=== PATIENT | female | born 1935 | race Caucasian/White ===

== ENCOUNTER → 2017-06-13 | Outpatient (CLI) | payer OTHER ==
[2016-05-13 11:42] VITALS: BP 165/70
[~2017-06-13] MED LIST: CIPR500T PO; EZET10TA18 PO; LATA2.5D3 EACHEYE; METO1TAB6 PO; METR500T PO; TIMO5DRO5 EACHEYE
--- NOTE | 2017-06-13 17:50 | CARD ---
APPROVED REPORT EXAM: Two-dimensional and M-mode echocardiogram with Doppler and color Doppler. Other Information Quality : Good INDICATION Mitral Valve Disease Mitral Regurgitation 2D DIMENSIONS RVDd2.4 (2.9-3.5cm)Left Atrium(2D)4.4 (1.6-4.0cm) IVSd1.2 (0.7-1.1cm)Aortic Root(2D)2.5 (2.0-3.7cm) LVDd3.7 (3.9-5.9cm)LVOT Diameter2.0 (1.8-2.4cm) PWd1.1 (0.7-1.1cm)LVDs2.2 (2.5-4.0cm) FS (%) 30.0 %SV39.7 ml LVEF(%)60.0 (>50%) Aortic Valve AoV Peak Wali.121.0cm/sAoV VTI23.6cm AO Peak GR.5.9mmHgLVOT Peak Wali.88.6cm/s LVOT VTI 20.21cmAO Mean GR.3mmHg ESSENCE (VMAX)2.57fo3BAU (VTI)2.63cm2 AI P 1/2 Vrrm914mh Mitral Valve MV E Azfgqbkt395.2cm/sMV DECEL [id number] MV A Dtccypmx02.4cm/sMV QRM52rt E/A Ratio1.1MVA (PHT)4.99cm2 TDI E/Lateral E'28.5E/Medial E'30.6 Tricuspid Valve TR P. Chaqtdfh417wq/sRAP RTGJLPCN9wrYp TR Peak Gr.50tdYxWBGY84reRt Pulmonary Vein S1 Mawfysrn75.0cm/sD2 Pewtxuhi39.9cm/s LEFT VENTRICLE The left ventricle is normal size. There is mild concentric left ventricular hypertrophy. The left ve ntricular systolic function is normal and the ejection fraction is within normal range. The Ejection Fraction is 60%. There is normal LV segmental wall motion. Transmitral Doppler flow pattern is Grade I-abnormal relaxation pattern. RIGHT VENTRICLE The right ventricle is normal size. The right ventricular systolic function is normal. ATRIA The left atrium is mildly dilated. The right atrium size is normal. The interatrial septum is intact with no evidence for an atrial septal defect or patent foramen ovale as noted on 2-D or Doppler imagi ng. AORTIC VALVE The aortic valve is calcified but opens well. Doppler and Color Flow revealed moderate aortic regurgi tation. There is no significant aortic valvular stenosis. MITRAL VALVE The mitral valve is normal in structure There is no evidence of mitral valve prolapse. There is no mi tral valve stenosis. Doppler and Color-flow revealed mild to moderate mitral regurgitation. TRICUSPID VALVE The tricuspid valve is normal in structure Doppler and Color Flow revealed trace tricuspid regurgitat ion. There is mild pulmonary hypertension. The PA pressure was estimated at 30 mmHg. There is no tric uspid valve stenosis. PULMONIC VALVE The pulmonary valve is normal in structure Doppler and Color Flow revealed trace pulmonic valvular re gurgitation. There is no pulmonic valvular stenosis. GREAT VESSELS The aortic root is normal in size. The ascending aorta is normal in size. The IVC is normal in size a nd collapses >50% with inspiration. PERICARDIAL EFFUSION There is a very small amount of pericardial effusion. Critical Notification Critical Value: No <Conclusion> The left ventricular systolic function is normal and the ejection fraction is within normal range. The Ejection Fraction is 60%. There is mild concentric left ventricular hypertrophy. Transmitral Doppler flow pattern is Grade I-abnormal relaxation pattern. The left atrium is mildly dilated. The right atrium size is normal. The left atrium is mildly dilated. The right atrium size is normal. Doppler and Color Flow revealed moderate aortic regurgitation. The aortic valve is calcified but opens well. Doppler and Color-flow revealed mild to moderate mitral regurgitation. Doppler and Color Flow revealed trace tricuspid regurgitation. There is mild pulmonary hypertension. The PA pressure was estimated at 30 mmHg. Doppler and Color Flow revealed trace pulmonic valvular regurgitation. The ascending aorta is normal in size. The aortic root is normal in size. There is a very small amount of pericardial effusion.
== END | disposition home or self-care (01) ==
LOC: ECHO 14:18
PROVIDERS: ATTEND Internal Medicine Cardiovascular Disease
DX: I08.3 Combined rheumatic disorders of mitral, aortic and tricuspid valves (principal); I27.20 Pulmonary hypertension, unspecified; I31.3 Pericardial effusion (noninflammatory)
CPT/HCPCS: 93306

== ENCOUNTER 2019-06-28 12:51 | Inpatient (IN) | payer OTHER ==
[~2019-06-28] VITALS: Ht 167.6 cm; Wt 105.7 kg
[~2019-06-28 12:51] MED LIST changes: -EZET10TA18 PO; +EZET10TA20 PO
--- NOTE | 2019-06-28 13:26 | PHYS DOC ---
Past Medical History Past Medical History: Diverticulitis, High Cholesterol, Hypertension, [place] Past Surgical History: Appendectomy, Other Additional Past Surgical Histo: CARDIAC STENT, PROLAPSED UTERUS, OVARIAN CYST Alcohol Use: Occasionally Drug Use: None Adult General Chief Complaint Chief Complaint: RAPID HEART RATE HPI HPI Patient is a 83 year old female that is with palpitations. The patient's been wearing a Holter monitor for the past several weeks she been having these episodes off and on. The patient was seen by Dr. Jeffery today at the studio technician video operator's office. She was sent to the ER due to a high heart rate. On arrival to the emergency department her heart rate is 151. Denies shortness of breath, but reports palpitations. The patient states that she does not have a history of atrial fibrillation. Review of Systems Review of Systems Constitutional: Denies fever or chills [] Eyes: Denies change in visual acuity, redness, or eye pain [] HENT: Denies nasal congestion or sore throat [] Respiratory: Denies cough or shortness of breath [] Cardiovascular: No additional information not addressed in HPI [] GI: Denies abdominal pain, nausea, vomiting, bloody stools or diarrhea [] : Denies dysuria or hematuria [] Musculoskeletal: Denies back pain or joint pain [] Integument: Denies rash or skin lesions [] Neurologic: Denies headache, focal weakness or sensory changes [] Endocrine: Denies polyuria or polydipsia [] Complete systems were reviewed and found to be within normal limits, except as documented in this note. Current Medications Current Medications Current Medications Medications (Trade) Dose Ordered Sig/[facility] Start Time Stop Time Status Last Admin Dose Admin Diltiazem HCl (Cardizem Iv Push) 15 mg 1X ONCE 06/28/19 13:30 06/28/19 13:32 DC 06/28/19 13:52 15 MG Diltiazem HCl 125 mg/Dextrose 125 ml @ 10 mls/hr 1X ONCE 06/28/19 13:59 06/29/19 01:59 Cancel Sodium Chloride 1,000 ml @ 1,000 mls/hr 1X ONCE 06/28/19 13:30 06/28/19 14:29 06/28/19 13:48 1,000 MLS/HR Allergies Allergies Allergies Coded Allergies Type Severity Reaction Last Updated Verified No Known Drug Allergies 05/11/16 No Physical Exam Physical Exam Constitutional: Well developed, well nourished, no acute distress, non-toxic appearance. [] HENT: Normocephalic, atraumatic, bilateral external ears normal, oropharynx moist, no oral exudates, nose normal. [] Eyes: PERRLA, EOMI, conjunctiva normal, no discharge. [] Neck: Normal range of motion, no tenderness, supple, no stridor. [] Cardiovascular:Heart rate irregular rhythm, no murmur [] Lungs & Thorax: Bilateral breath sounds clear to auscultation [] Abdomen: Bowel sounds normal, soft, no tenderness, no masses, no pulsatile masses. [] Skin: Warm, dry, no erythema, no rash. [] Back: No tenderness, no CVA tenderness. [] Extremities: No tenderness, no cyanosis, no clubbing, ROM intact, no edema. [] Neurologic: Alert and oriented X 3, normal motor function, normal sensory function, no focal deficits noted. [] Psychologic: Affect normal, judgement normal, mood normal. [] Current Patient Data Vital Signs Vital Signs Date Time Temp Pulse Resp B/P (MAP) Pulse Ox O2 Delivery O2 Flow Rate FiO2 06/28/19 13:52 152 157/85 06/28/19 13:18 97.1 20 Room Air 97.1 Lab Values Laboratory Tests Test 06/28/19 13:25 White Blood Count 7.8 x10^3/uL (4.0-11.0) Red Blood Count 4.63 x10^6/uL (3.50-5.40) Hemoglobin 14.7 g/dL (12.0-15.5) Hematocrit 42.1 % (36.0-47.0) Mean Corpuscular Volume 91 fL (79-100) Mean Corpuscular Hemoglobin 32 pg (25-35) Mean Corpuscular Hemoglobin Concent 35 g/dL (31-37) Red Cell Distribution Width 13.1 % (11.5-14.5) Platelet Count 227 x10^3/uL (140-400) Neutrophils (%) (Auto) 69 % (31-73) Lymphocytes (%) (Auto) 19 % (24-48) L Monocytes (%) (Auto) 10 % (0-9) H Eosinophils (%) (Auto) 3 % (0-3) Basophils (%) (Auto) 1 % (0-3) Neutrophils # (Auto) 5.3 x10^3/uL (1.8-7.7) Lymphocytes # (Auto) 1.5 x10^3/uL (1.0-4.8) Monocytes # (Auto) 0.7 x10^3/uL (0.0-1.1) Eosinophils # (Auto) 0.2 x10^3/uL (0.0-0.7) Basophils # (Auto) 0.0 x10^3/uL (0.0-0.2) Prothrombin Time 24.1 SEC (11.7-14.0) H Prothrombin Time INR 2.2 (0.8-1.1) H Activated Partial Thromboplast Time 54 SEC (24-38) H Sodium Level 140 mmol/L (136-145) Potassium Level 4.4 mmol/L (3.5-5.1) Chloride Level 105 mmol/L (98-107) Carbon Dioxide Level 25 mmol/L (21-32) Anion Gap 10 (6-14) Blood Urea Nitrogen 35 mg/dL (7-20) H Creatinine 1.3 mg/dL (0.6-1.0) H Estimated GFR (Cockcroft-Gault) 39.2 BUN/Creatinine Ratio 27 (6-20) H Glucose Level 208 mg/dL (70-99) H Calcium Level 9.3 mg/dL (8.5-10.1) Magnesium Level 1.6 mg/dL (1.8-2.4) L Total Bilirubin 0.6 mg/dL (0.2-1.0) Aspartate Amino Transferase (AST) 16 U/L (15-37) Alanine Aminotransferase (ALT) 24 U/L (14-59) Alkaline Phosphatase 80 U/L (46-116) Creatine Kinase 44 U/L (26-192) Creatine Kinase MB (Mass) 1.4 ng/mL (0.0-3.6) Creatine Kinase MB Relative Index % (0-4) Troponin I Quantitative < 0.017 ng/mL (0.000-0.055) Total Protein 7.1 g/dL (6.4-8.2) Albumin 4.0 g/dL (3.4-5.0) Albumin/Globulin Ratio 1.3 (1.0-1.7) Laboratory Tests 06/28/19 13:25 Laboratory Tests 06/28/19 13:25 EKG EKG EKG interpreted by Dr. Prado Heart rate of 151 with afib with rvr.[] Radiology/Procedures Radiology/Procedures [][facility] [address] [place] [address] IMAGING REPORT Signed PATIENT: BENI SKY CACCOUNT: [id number] : 1935 LOCATION: ER AGE: 83 SEX: F EXAM STATUS: REG ER ORD. PHYSICIAN: VIKY POWELL APRN REASON: palpitations PROCEDURE: CHEST PA & LATERAL EXAM: Chest, 2 views. HISTORY: Palpitations. COMPARISON: None. FINDINGS: 2 views of the chest are obtained. There is no infiltrate, pleural effusion or pneumothorax. The heart is normal in size. There is hyperinflation due to inspiratory effort or emphysema. There is a severe wedge compression fracture at the thoracolumbar junction. IMPRESSION: No acute pulmonary finding. Electronically signed by: Pretty Ignacio MD (06/28/2019 1:43 PM) [place] [id number] DICTATED and SIGNED BY: PRETTY IGNACIO MD DATE: 06/28/19 1343 Course & Med Decision Making Course & Med Decision Making Pertinent Labs and Imaging studies reviewed. (See chart for details) Will get labs, chest x-ray, and will get ekg. Patient appears to be having afib. Will order diltiazem. Consulted cards and discussed with Dr. Blue who agrees to admission (1400). Dragon Disclaimer Dragon Disclaimer This electronic medical record was generated, in whole or in part, using a voice recognition dictation system. Departure Departure Impression: Primary Impression: Atrial fibrillation with RVR Disposition: ADMITTED INPATIENT Admitting Physician: Piedad Blue Condition: GUARDED Referrals: PIEDAD BLUE MD (PCP) VIKY POWELL APRN Jun 28, 2019 13:26
[2019-06-28] MEDS ORDERED: IV NORMAL SALINE 1000ML BAG 1,000 ML IV ONE (13:30)
[2019-06-28] MEDS: dilTIAZem INJ 125 MG in IV DEXTROSE 5% 100ML 100 ML IV ONE ×2 (13:30→14:09)
[2019-06-28] MEDS ORDERED: dilTIAZem IV PUSH 25 MG/5 ML VIAL IVP ONE (13:30)
[2019-06-28] MEDS ORDERED: ATOR10TA60 PO (13:32)
[2019-06-28] MEDS ORDERED: ALPR0.5T6 PO (13:32)
[2019-06-28] MEDS ORDERED: RIVA20TA2 PO (13:32)
[2019-06-28] MEDS ORDERED: METO25TA4 PO (13:32)
[2019-06-28 13:36] LABS: BASO % 1 % (0-3); EOS # 0.2 x10^3/uL (0.0-0.7); EOS % 3 % (0-3); HEMATOCRIT 42.1 % (36.0-47.0); HEMOGLOBIN 14.7 g/dL (12.0-15.5); LYMPH # 1.5 x10^3/uL (1.0-4.8); LYMPH % 19 % (24-48); MEAN CORPUSCULAR HEMOGLOBIN 32 pg (25-35); MEAN CORPUSCULAR HGB CONC 35 g/dL (31-37); MEAN CORPUSCULAR VOLUME 91 fL (79-100); MONO # 0.7 x10^3/uL (0.0-1.1); MONO % 10 % (0-9); NEUT # 5.3 x10^3/uL (1.8-7.7); NEUT % 69 % (31-73); PLATELET COUNT 227 x10^3/uL (140-400); RED BLOOD COUNT 4.63 x10^6/uL (3.50-5.40); RED CELL DISTRIBUTION WIDTH 13.1 % (11.5-14.5); WHITE BLOOD COUNT 7.8 x10^3/uL (4.0-11.0)
[2019-06-28 13:42] LABS: CALCIUM 9.3 mg/dL (8.5-10.1); CREATININE 1.3 mg/dL (0.6-1.0); GFR 39.2; POTASSIUM 4.4 mmol/L (3.5-5.1)
--- NOTE | 2019-06-28 13:46 | RAD ---
EXAM: Chest, 2 views. HISTORY: Palpitations. COMPARISON: None. FINDINGS: 2 views of the chest are obtained. There is no infiltrate, pleural effusion or pneumothorax. The heart is normal in size. There is hyperinflation due to inspiratory effort or emphysema. There is a severe wedge compression fracture at the thoracolumbar junction. IMPRESSION: No acute pulmonary finding. Electronically signed by: Pretty Martinez MD (06/28/2019 1:43 PM) [place] [id number]
[2019-06-28 13:48] LABS: ALBUMIN/GLOBULIN RATIO 1.3 (1.0-1.7); MAGNESIUM 1.6 mg/dL (1.8-2.4); TOTAL BILIRUBIN 0.6 mg/dL (0.2-1.0); TOTAL PROTEIN 7.1 g/dL (6.4-8.2)
[2019-06-28 13:50] LABS: PROTHROMBIN TIME PATIENT 24.1 SEC (11.7-14.0)
--- NOTE | 2019-06-28 13:55 | EKG ---
[facility] [address] [place] [address] Test Date: 2019-06-28 Test Time: 13:16:18 Pat Name: BENI SKY Department: Room: Gender: F Volunteer Services Assistant: : 1935 Requested By: VIKY POWELL Order Number: [id number] Reading MD: Measurements Intervals [place] Rate: 150 P: 134 SC: 78 QRS: 9 QRSD: 78 T: -46 QT: 278 QTc: 441 Interpretive Statements SINUS TACHYCARDIA ST & T ABNORMALITY, CONSIDER ANTEROLATERAL ISCHEMIA OR LEFT VENTRICULAR STRAIN INFEROLATERAL ISCHEMIA OR LEFT VENTRICULAR STRAIN ABNORMAL ECG No previous ECG available for comparison
[2019-06-28 13:56] LABS: CREATINE KINASE 44 U/L (26-192)
[2019-06-28] MEDS ORDERED: dilTIAZem INJ 125 MG in IV DEXTROSE 5% 100ML 100 ML IV ONE (13:59)
[2019-06-28] MEDS ORDERED: fentaNYL PF VIAL 100 MCG/2 ML VIAL IV PRN (14:15)
[2019-06-28] MEDS ORDERED: ONDANSETRON PF 4 MG/2 ML VIAL. IV PRN (14:15)
--- NOTE | 2019-06-28 14:49 | PDOC2 ---
KYE PEÑA MARIUM 06/28/19 1449: CARDIAC CONSULT DATE OF CONSULT Date of Consult DATE: 06/28/19 TIME: 14:42 REASON FOR CONSULT Reason for Consult: AFIB with RVR, new onset REFERRING PHYSICIAN Referring Physician: Chip Lynn APRN SOURCE Source: Chart review, Patient HISTORY OF PRESENT ILLNESS HISTORY OF PRESENT ILLNESS This is an 83 yo female who presented secondary to AFIB with RVR. Patient schedu led for outpatient echo today and was noted in AFIB with RVR. Patient was referred to the ED for further evaluation and treatment. Had experienced some dizziness and palpitations intermittently since April. Worse a heart monitor for 48hrs. Apparently did not have any results of this for about a month. Monitor did note AFIB with burden of > 90%. Was placed on Xarelto for stroke prophylaxis and scheduled for outpatient echo. Does have a h/o CAD s/p PCI/stent in 2008. Followed previously with Dr. Roberson, but has not established care with new clamshell operator. No recent MPI or cardiac cath. No prior h/o AFIB. Denies any chest pain, diaphoresis, or nausea/vomiting. Converted to SR in ED, but was back in AFIB with RVR upon arrival to unit. PAST MEDICAL HISTORY Cardiovascular: CAD, HTN, Hyperlipidemia GI: Diverticulosis, GERD Psych: Anxiety Musculoskeletal: Osteoarthritis PAST SURGICAL HISTORY Past Surgical History: Hysterectomy, Other (PCI/stent ) FAMILY HISTORY Family History: Other (Dementia ) SOCIAL HISTORY Smoke: Quit (2008) ALCOHOL: none Drugs: None Lives: with Family CURRENT MEDICATIONS CURRENT MEDICATIONS Current Medications Medications (Trade) Dose Ordered Sig/Lilli Route PRN Reason Start Time Stop Time Status Last Admin Dose Admin Sodium Chloride 1,000 ml @ 1,000 mls/hr 1X ONCE IV 06/28/19 13:30 06/28/19 14:29 DC 06/28/19 13:48 Diltiazem HCl (Cardizem Iv Push) 15 mg 1X ONCE IVP 06/28/19 13:30 06/28/19 13:32 DC 06/28/19 13:52 Diltiazem HCl 125 mg/Dextrose 125 ml @ 10 mls/hr 1X ONCE IV 06/28/19 13:30 06/29/19 01:59 06/28/19 14:09 ALLERGIES ALLERGIES: Coded Allergies: No Known Drug Allergies (Unverified , 05/11/16) ROS Review of System 14 point ROS conducted with pertinent positives noted above in HPI. PHYSICAL EXAM General: Alert, Oriented X3, Cooperative, No acute distress HEENT: Atraumatic, Mucous membr. moist/pink Lungs: Clear to auscultation Heart: Normal S1, Normal S2, Other (AFIB RVR, rate 150) Abdomen: No tenderness Extremities: No edema, Normal pulses Skin: No significant lesion Neuro: Normal speech, Sensation intact Psych/Mental Status: Mental status NL, Mood NL MUSCULOSKELETAL: Osteoarthritic changes both hands VITALS/I&O VITALS/I&O: Vital Signs Date Time Temp Pulse Resp B/P (MAP) Pulse Ox O2 Delivery O2 Flow Rate FiO2 06/28/19 14:38 76 18 143/78 (99) 97 Room Air 06/28/19 13:18 97.1 97.1 LABS Lab: Laboratory Tests Test 06/28/19 13:25 White Blood Count 7.8 x10^3/uL (4.0-11.0) Red Blood Count 4.63 x10^6/uL (3.50-5.40) Hemoglobin 14.7 g/dL (12.0-15.5) Hematocrit 42.1 % (36.0-47.0) Mean Corpuscular Volume 91 fL (79-100) Mean Corpuscular Hemoglobin 32 pg (25-35) Mean Corpuscular Hemoglobin Concent 35 g/dL (31-37) Red Cell Distribution Width 13.1 % (11.5-14.5) Platelet Count 227 x10^3/uL (140-400) Neutrophils (%) (Auto) 69 % (31-73) Lymphocytes (%) (Auto) 19 % (24-48) L Monocytes (%) (Auto) 10 % (0-9) H Eosinophils (%) (Auto) 3 % (0-3) Basophils (%) (Auto) 1 % (0-3) Neutrophils # (Auto) 5.3 x10^3/uL (1.8-7.7) Lymphocytes # (Auto) 1.5 x10^3/uL (1.0-4.8) Monocytes # (Auto) 0.7 x10^3/uL (0.0-1.1) Eosinophils # (Auto) 0.2 x10^3/uL (0.0-0.7) Basophils # (Auto) 0.0 x10^3/uL (0.0-0.2) Prothrombin Time 24.1 SEC (11.7-14.0) H Prothrombin Time INR 2.2 (0.8-1.1) H Activated Partial Thromboplast Time 54 SEC (24-38) H Sodium Level 140 mmol/L (136-145) Potassium Level 4.4 mmol/L (3.5-5.1) Chloride Level 105 mmol/L (98-107) Carbon Dioxide Level 25 mmol/L (21-32) Anion Gap 10 (6-14) Blood Urea Nitrogen 35 mg/dL (7-20) H Creatinine 1.3 mg/dL (0.6-1.0) H Estimated GFR (Cockcroft-Gault) 39.2 BUN/Creatinine Ratio 27 (6-20) H Glucose Level 208 mg/dL (70-99) H Calcium Level 9.3 mg/dL (8.5-10.1) Magnesium Level 1.6 mg/dL (1.8-2.4) L Total Bilirubin 0.6 mg/dL (0.2-1.0) Aspartate Amino Transferase (AST) 16 U/L (15-37) Alanine Aminotransferase (ALT) 24 U/L (14-59) Alkaline Phosphatase 80 U/L (46-116) Creatine Kinase 44 U/L (26-192) Creatine Kinase MB (Mass) 1.4 ng/mL (0.0-3.6) Creatine Kinase MB Relative Index % (0-4) Troponin I Quantitative < 0.017 ng/mL (0.000-0.055) Total Protein 7.1 g/dL (6.4-8.2) Albumin 4.0 g/dL (3.4-5.0) Albumin/Globulin Ratio 1.3 (1.0-1.7) Laboratory Tests 06/28/19 13:25 Laboratory Tests 06/28/19 13:25 ECHOCARDIOGRAM ECHOCARDIOGRAM <Conclusion> The systolic function was hard to assess due to the rapid heart rate. There is moderate global LV dysfunction. EF 40-45% Wall motion not accurately evalauted due to rapid heart rate. Doppler and Color Flow revealed mild to moderate aortic regurgitation. DATE: 06/28/19 1200 ASSESSMENT/PLAN ASSESSMENT/PLAN 1. AFIB RVR, new finding last month on Holter monitor 2. CAD; s/p PCI/stent 2008. Stable. CP free 3. Accelerated hypertension 4. Hyperlipidemia; statin 5. BLAKE 6. Hypomagnesemia Recommendations Metoprolol IV 5mg x1 now Resume metoprolol for rate control Discontinue Cardizem given mild LV dysfunction Add low- dose ACEi Start Amiodarone gtt per protocol Resume Xarelto for stroke prophylaxis Replace Mg NPO p PM Will plan for MACARENA with CV unless she converts to SR overnight Outpatient ischemic evaluation MJ WORKMAN MD 06/28/19 1709: CARDIAC CONSULT ASSESSMENT/PLAN ASSESSMENT/PLAN Patient seen and examined. Agree with above nurse practitioner note. This 83-year-old woman presented for an outpatient echocardiogram and noted to have atrial fibrillation with a rapid ventricular response. She was admitted for further evaluation and treatment Case discussed with her PCP Dr. Tyler Edwards Plan as noted above. KYE PEÑA APRN Jun 28, 2019 14:49 MJ WORKMAN MD Jun 28, 2019 17:09
[2019-06-28] MEDS ORDERED: 0.9 % SODIUM CHLORIDE 10 ML DISP.SYRIN. IV PRN ×2 (15:00)
[2019-06-28] MEDS ORDERED: LIDOCAINE 2% VISCOUS 15 ML SOLUTION. MM ONE (15:00)
[2019-06-28] MEDS ORDERED: BENZOCAINE ONE 20% MUCOSAL SPRAY. MM (15:00)
[2019-06-28] MEDS ORDERED: LIDOCAINE 2% TOPICAL JELLY 5GM TUBE. TP ONE (15:00)
[2019-06-28 15:35] VITALS: BP 173/110
[2019-06-28] MEDS ORDERED: METOPROLOL TARTRATE 5 MG/5 ML VIAL. IVP ONE (15:45)
[2019-06-28] MEDS: METOPROLOL TART IMMED RELEASE 50 MG TABLET. PO SCH ×2 (16:09→20:57)
[2019-06-28] MEDS ORDERED: AMIODARONE 150 MG in IV DEXTROSE 5% 100ML 100 ML IV ONE (16:45)
[2019-06-28] MEDS ORDERED: AMIODARONE 900 MG in IV DEXTROSE 5% 500 ML IV PRN (16:45)
[2019-06-28] MEDS ORDERED: MAGNESIUM SULFATE 2GM 50 ML IV ONE (17:00)
[2019-06-28] MEDS: RIVAROXABAN 10 MG TABLET. PO SCH (17:52)
[2019-06-28 19:00] VITALS: BP 156/71
[2019-06-28] MEDS ORDERED: APIXABAN 5 MG TABLET. PO SCH (21:00)
[2019-06-28] MEDS ORDERED: TEMAZEPAM 15 MG CAPSULE PO PRN (21:45)
[2019-06-28 23:00] VITALS: BP 170/122
[2019-06-29] VITALS (11 sets, daily range): BP systolic 145–180; BP diastolic 65–112
[2019-06-29 04:14] LABS: CHOLESTEROL/HDL RATIO 2.6
[2019-06-29] MEDS ORDERED: LIDOCAINE 2% TOPICAL JELLY 30GM TUBE. TP ONE (07:30)
[2019-06-29] MEDS ORDERED: BENZOCAINE ONE 20% MUCOSAL SPRAY. MM (07:30)
[2019-06-29] MEDS ORDERED: LIDOCAINE 2% VISCOUS 15 ML SOLUTION. SWSW ONE (07:30)
[2019-06-29] MEDS ORDERED: LIDOCAINE 2% VISCOUS 15 ML SOLUTION. SWSW PRN (07:30)
[2019-06-29] MEDS: METOPROLOL TART IMMED RELEASE 50 MG TABLET. PO SCH ×2 (08:25→21:03)
[2019-06-29] MEDS: LISINOPRIL 5 MG TABLET. PO SCH (08:26)
--- NOTE | 2019-06-29 09:12 | PDOC ---
Provider Note Provider Note dictated PIEDAD BLUE MD Jun 29, 2019 09:12
--- NOTE | 2019-06-29 11:04 | HP ---
ADMIT DATE: CHIEF COMPLAINT: Persistent atrial fibrillation with rapid ventricular response. HISTORY OF PRESENT ILLNESS: A 83-year-old white female with recent exam by 24-hour monitor to have a large burden of atrial fibrillation. She has had palpitations in the recent few weeks, but no symptoms to speak beyond that. She was at an echo appointment and noticed to have a rapid ventricular rate and dyspnea and admitted to the ER. She has been on IV Cardizem and amiodarone and remains in atrial fibrillation. Xarelto was started as an outpatient. PAST MEDICAL HISTORY: She had a coronary stent placed about 10 years ago and was under the care of Dr. Roberson but has not seen a supervisor inspection since that time until seen by Dr. Jeffery on the day of admission. She takes very few meds at home. There is no other serious known medical problems. SOCIAL HISTORY: , nonsmoker, nondrinker, physically active for her age. FAMILY HISTORY: Unremarkable. REVIEW OF SYSTEMS: No other complaints. OBJECTIVE: ENT: All within normal limits. NECK: No masses, nodes, bruits or thyroid enlargement. LUNGS: Clear. CARDIOVASCULAR: Irregular rate consistent with atrial fibrillation, rate about 100-110. ABDOMEN: Soft, benign and nontender. EXTREMITIES: Good pedal and radial pulses. No joint or skin lesions or edema. NEUROLOGIC: Physiologic tremors are noted. No focal findings. ASSESSMENT: Idiopathic atrial fibrillation with rapid ventricular response, prior coronary artery stent in 2008, but no ischemic symptoms at this time. PLAN: Plan is for MACARENA and presumed cardioversion today followed by observation with new medications. Continue Xarelto prophylaxis. PIEDAD BLUE MD DR: GOVIND/tim JOB#: [id number] / [id number]
[2019-06-29] MEDS ORDERED: IV RINGERS,LACTATED 1000ML 1,000 ML IV SCH (11:09)
[2019-06-29] MEDS ORDERED: fentaNYL PF VIAL 100 MCG/2 ML VIAL IV PRN ×2 (11:15)
[2019-06-29] MEDS ORDERED: HYDROmorphone 2 MG/ML VIAL IV PRN (11:15)
[2019-06-29] MEDS ORDERED: LIDOCAINE 1% PF 2 ML VIAL. ID PRN (11:15)
[2019-06-29] MEDS ORDERED: PROCHLORPERAZINE 10 MG/2 ML VIAL. IV PRN (11:15)
[2019-06-29] MEDS ORDERED: MORPHINE SULFATE 2 MG/ML VIAL. IV PRN (11:15)
[2019-06-29] MEDS ORDERED: PROPOFOL 20 ML IV ONE (11:40)
--- NOTE | 2019-06-29 11:47 | NUR ---
SS following for discharge planning. SS reviewed pt chart. Pt is from home with spouse and is currently on room air. Per pt's RN, pt is physically high functioning with mobility. SS will continue to follow for discharge planning.
--- NOTE | 2019-06-29 11:52 | NUR ---
PATIENT LEFT THE FLOOR AT APPROX 1100. AMIODARONE STOPPED AT THAT TIME.
[2019-06-29] MEDS: ANTI-COAG MONITOR BY PHARMACY. MC PRN (12:44)
--- NOTE | 2019-06-29 14:04 | EKG ---
[facility] [address] [place] [address] Test Date: 2019-06-29 Test Time: 12:20:14 Pat Name: BENI SKY Department: Room: 202 1 Gender: F Call Center Representative: YORDAN : 1935 Requested By: MJ WORKMAN Order Number: [id number] Reading MD: Measurements Intervals [place] Rate: 55 P: -8 VT: 170 QRS: 5 QRSD: 82 T: 33 QT: 488 QTc: 469 Interpretive Statements SINUS RHYTHM T ABNORMALITY IN HIGH LATERAL LEADS ABNORMAL ECG RI6.02 No previous ECG available for comparison
--- NOTE | 2019-06-29 14:33 | CARD ---
MR#: [id number] Date of Study: 06/29/2019 Ordering Physician: KYE PEÑA, Referring Physician: KYE PEÑA, Tech: Connie Moser RDCS APPROVED REPORT EXAM: Transesophageal echocardiogram with color flow Doppler. INDICATION Atrial Fibrillation Reason For Test : Rule out Intracardiac Thrombus. PROCEDURE After obtaining informed consent, patient underwent transesophageal echo in the PACU. Type of Sedation : General Anesthesia Sedation was administered by General Anesthesia. Sedation was achieved with Propofol 140mg intravenously. Synchronized Cardioversion attempted: Successful Synchronized Cardioversion acheived with 200 Joules after 1 attempt(s). Throughout the procedure, the blood pressure, pulse oximetry, cardiac rhythm, and rate were monitored . LEFT VENTRICLE The left ventricle is normal size. There is normal left ventricular wall thickness. The ejection frac tion is severely impaired. The Ejection Fraction is 20%. There is global hypokinesis of the left vent ricle. No left ventricle thrombus noted on this study. RIGHT VENTRICLE The right ventricle is normal size. There is normal right ventricular wall thickness. The right ventr icular systolic function is normal. ATRIA The left atrium is moderately dilated. The right atrium is mildly dilated. The interatrial septum is intact with no evidence for an atrial septal defect or patent foramen ovale as noted on 2-D or Dopple r imaging. There is no thrombus noted in the left atrial appendage. AORTIC VALVE The aortic valve is trileaflet. Doppler and Color Flow revealed mild aortic regurgitation. There is n o significant aortic valvular stenosis. There is no aortic valvular vegetation. MITRAL VALVE The mitral valve is normal in structure and function. There is no evidence of mitral valve prolapse. There is no mitral valve stenosis. Doppler and Color-flow revealed mild mitral regurgitation. TRICUSPID VALVE The tricuspid valve is normal in structure and function. Doppler and Color Flow revealed trace tricus pid regurgitation. There is no tricuspid valve prolapse or vegetation. There is no tricuspid valve st enosis. PULMONIC VALVE The pulmonary valve is normal in structure and function. Doppler and Color Flow revealed no pulmonic valvular regurgitation. There is no pulmonic valvular stenosis. GREAT VESSELS The aortic root is normal in size. The ascending aorta is normal in size. The IVC is normal in size a nd collapses >50% with inspiration. Critical Notification Critical Value: No <Conclusion> The ejection fraction is severely impaired. The Ejection Fraction is 20%. There is global hypokinesis of the left ventricle. There is no thrombus noted in the left atrial appendage. Doppler and Color Flow revealed mild aortic regurgitation. Doppler and Color-flow revealed mild mitral regurgitation. Successful CVN to SR. Signed by : Saud Jeffery, Electronically Approved : 06/29/2019 14:33:33
[2019-06-29] MEDS: RIVAROXABAN 10 MG TABLET. PO SCH (18:02)
[2019-06-29] MEDS ORDERED: IBUPROFEN 400 MG TABLET. PO PRN (20:00)
[2019-06-29] MEDS ORDERED: LATANOPROST 0.005% OPHTH SOLUTION 2.5ML BOTTLE. OU SCH (21:00)
[2019-06-30 01:08] LABS: HEMOGLOBIN A1C 7.3 % (4.8-5.6)
[2019-06-30 07:00] VITALS: BP 171/74
[2019-06-30] MEDS: ANTI-COAG MONITOR BY PHARMACY. MC PRN (08:29)
[2019-06-30] MEDS: METOPROLOL TART IMMED RELEASE 50 MG TABLET. PO SCH (09:06)
[2019-06-30] MEDS: LISINOPRIL 5 MG TABLET. PO SCH (09:07)
--- NOTE | 2019-06-30 10:56 | PDOC ---
Provider Note Provider Note [id number] PIEDAD BLUE MD Jun 30, 2019 10:56
[2019-06-30 11:00] VITALS: BP 171/74
[2019-06-30] MEDS ORDERED: AMIO200T4 PO (11:37)
--- NOTE | 2019-06-30 11:45 | NUR ---
Discharge Note: BEIN SKY Discharge instructions and discharge home medications reviewed with Patient and a copy given. All questions have been answered and understanding verbalized. The following instructions and handouts were given: discharge medication instructions, sctip for Amiodarone, Afib education Discontinued lines and drains: dressing, clean, dry intact. Patient discharged to home with spouse via amublation
--- NOTE | 2019-06-30 13:44 | PDOC ---
PROGRESS NOTES Subjective Subjective Patient seen and examined Objective Objective Vital Signs Date Time Temp Pulse Resp B/P (MAP) Pulse Ox O2 Delivery O2 Flow Rate FiO2 06/30/19 11:00 97.7 49 22 171/74 (106) 96 Room Air 97.7 06/29/19 12:05 10 Intake and Output 06/30/19 07:00 Intake Total 50 ml Output Total 1200 ml Balance -1150 ml Intake Oral 50 ml Output Urine Total 1200 ml # Voids 1 Physical Exam Abdomen: Normal bowel sounds Heart: Regular rate General: No acute distress HEENT: Atraumatic Lungs: Clear to auscultation Assessment Assessment Problems Medical Problems: (1) Atrial fibrillation with RVR Status: Acute 1. AFIB RVR, new finding last month on Holter monitor. Cardioverted yesterday to sinus rhythm. Remains in sinus rhythm. We'll continue anticoagulation along with beta blockers and amiodarone. 2. CAD; s/p PCI/stent 2008. Stable. CP free 3. Accelerated hypertension. Improved. today. Medication adjustment as above. 4. Hyperlipidemia; statin. Comment Review of Relevant I have reviewed the following items maddy (where applicable) has been applied. Labs Laboratory Tests Test 06/29/19 03:00 Hemoglobin A1c 7.3 % (4.8-5.6) Triglycerides Level 125 mg/dL (0-150) Cholesterol Level 168 mg/dL (0-200) LDL Cholesterol, Calculated 78 mg/dL (0-100) VLDL Cholesterol, Calculated 25 mg/dL (0-40) Non-HDL Cholesterol Calculated 103 mg/dL (0-129) HDL Cholesterol 65 mg/dL (40-60) Cholesterol/HDL Ratio 2.6 Medications Current Medications Sodium Chloride 1,000 ml @ 1,000 mls/hr 1X ONCE IV Last administered on 06/28/19at 13:48; Start 06/28/19 at 13:30; Stop 06/28/19 at 14:29; Status DC Diltiazem HCl (Cardizem Iv Push) 15 mg 1X ONCE IVP Last administered on 06/28/19at 13:52; Start 06/28/19 at 13:30; Stop 06/28/19 at 13:32; Status DC Diltiazem HCl 125 mg/Dextrose 125 ml @ 10 mls/hr 1X ONCE IV Last administered on 06/28/19at 14:09; Start 06/28/19 at 13:30; Stop 06/28/19 at 16:47; Status DC Diltiazem HCl 125 mg/Dextrose 125 ml @ 10 mls/hr 1X ONCE IV ; Start 06/28/19 at 13:59; Stop 06/29/19 at 01:59; Status Cancel Ondansetron HCl (Zofran) 4 mg PRN Q8HRS PRN IV NAUSEA/VOMITING; Start 06/28/19 at 14:15; Stop 06/29/19 at 14:14; Status DC Fentanyl Citrate (Fentanyl 2ml Vial) 50 mcg PRN Q1HR PRN IV PAIN; Start 06/28/19 at 14:15; Stop 06/29/19 at 18:00; Status DC Metoprolol Tartrate (Lopressor) 50 mg BID PO Last administered on 06/30/19at 09:06; Start 06/28/19 at 15:00 Apixaban (Eliquis) 5 mg BID PO ; Start 06/28/19 at 21:00; Stop 06/28/19 at 16:47; Status DC Sodium Chloride (Normal Saline Flush) 10 ml QSHIFT PRN IV AFTER MEDS AND BLOOD DRAWS; Start 06/28/19 at 15:00; Status UNV Sodium Chloride (Normal Saline Flush) 10 ml QSHIFT PRN IV AFTER MEDS AND BLOOD DRAWS; Start 06/28/19 at 15:00 Lidocaine HCl (Xylocaine 2% Topical 5gm Tube) 1 henry 1X ONCE TP Last adm inistered on 06/28/19at 11:54; Start 06/28/19 at 15:00; Stop 06/28/19 at 15:07; Status DC Lidocaine HCl (Viscous Lidocaine) 15 ml 1X ONCE MM Last administered on 06/28/19at 11:45; Start 06/28/19 at 15:00; Stop 06/28/19 at 15:07; Status DC Benzocaine (Hurricaine One) 3 spray 1X ONCE MM ; Start 06/28/19 at 15:00; Stop 06/29/19 at 12:19; Status DC Info (Anti-Coagulation Monitoring By Pharmacy) 1 each PRN DAILY PRN MC SEE COMMENTS Last administered on 06/30/19at 08:29; Start 06/28/19 at 15:15 Metoprolol Tartrate (Lopressor Vial) 5 mg 1X ONCE IVP Last administered on 06/28/19at 16:05; Start 06/28/19 at 15:45; Stop 06/28/19 at 15:46; Status DC Amiodarone HCl 150 mg/Dextrose 103 ml @ 600 mls/hr 1X ONCE IV Last administered on 06/28/19at 18:33; Start 06/28/19 at 16:45; Stop 06/28/19 at 17:06; Status DC Amiodarone HCl 900 mg/Dextrose 518 ml @ 0 mls/hr CONT PRN IV SEE I/O RECORD Last administered on 06/28/19at 18:29; Start 06/28/19 at 16:45; Stop 06/29/19 at 16:44; Status DC Rivaroxaban (Xarelto) 20 mg DAILYWSUP PO Last administered on 06/29/19at 18:02; Start 06/28/19 at 17:00 Magnesium Sulfate 50 ml @ 25 mls/hr 1X ONCE IV Last administered on 06/28/19at 17:56; Start 06/28/19 at 17:00; Stop 06/28/19 at 18:59; Status DC Lisinopril (Prinivil) 5 mg DAILY PO Last administered on 06/30/19 09:07; Start 06/29/19 at 09:00 Temazepam (Restoril) 15 mg PRN QHS PRN PO INSOMNIA Last administered on 06/28/19at 22:48; Start 06/28/19 at 21:45 Benzocaine (Hurricaine One) 2 spray 1X ONCE MM Last administered on 06/29/19at 11:46; Start 06/29/19 at 07:30; Stop 06/29/19 at 07:36; Status DC Lidocaine HCl (Xylocaine 2% Topical 30gm Tube) 1 henry 1X ONCE TP ; Start 06/29/19 at 07:30; Stop 06/29/19 at 12:19; Status DC Lidocaine HCl (Viscous Lidocaine) 15 ml PRN Q4HRS PRN SWSW MOUTH PAIN; Start 06/29/19 at 07:30; Stop 06/29/19 at 12:19; Status DC Lidocaine HCl (Viscous Lidocaine) 15 ml 1X ONCE SWSW ; Start 06/29/19 at 07:30; Stop 06/29/19 at 07:33; Status DC Fentanyl Citrate (Fentanyl 2ml Vial) 25 mcg PRN Q5MIN PRN IV MILD PAIN 1-3; Start 06/29/19 at 11:15; Stop 06/30/19 at 11:14; Status DC Fentanyl Citrate (Fentanyl 2ml Vial) 50 mcg PRN Q5MIN PRN IV MODERATE TO SEVERE PAIN; Start 06/29/19 at 11:15; Stop 06/30/19 at 11:14; Status DC Morphine Sulfate (Morphine Sulfate) 1 mg PRN Q10MIN PRN IV SEVERE PAIN 7-10; Start 06/29/19 at 11:15; Stop 06/30/19 at 11:14; Status DC Ringer's Solution 1,000 ml @ 30 mls/hr Q24H IV ; Start 06/29/19 at 11:09; Stop 06/29/19 at 23:08; Status DC Lidocaine HCl (Xylocaine-Mpf 1% 2ml Vial) 2 ml PRN 1X PRN ID PRIOR TO IV START; Start 06/29/19 at 11:15; Stop 06/29/19 at 12:19; Status DC Hydromorphone HCl (Dilaudid) 0.5 mg PRN Q10MIN PRN IV SEV PAIN, Second choice; Start 06/29/19 at 11:15; Stop 06/30/19 at 11:14; Status DC Prochlorperazine Edisylate (Compazine) 5 mg PACU PRN PRN IV NAUSEA, MRX1; Start 06/29/19 at 11:15; Stop 06/30/19 at 11:14; Status DC Propofol 20 ml @ As Directed STK-MED ONCE IV ; Start 06/29/19 at 11:40; Stop 06/29/19 at 11:40; Status DC Ibuprofen (Motrin) 400 mg TID PRN PRN PO INFLAMMATION Last administered on 06/29/19at 20:09; Start 06/29/19 at 20:00 Latanoprost (Xalatan) 1 drop QHS OU Last administered on 06/29/19at 21:02; Start 06/29/19 at 21:00 Active Scripts Active Reported Amiodarone Hcl 200 Mg Tablet 200 Mg PO DAILY Take once daily every AM Xarelto (Rivaroxaban) 20 Mg Tablet 1 Tab PO DAILY 30 Days with food Metoprolol Tartrate 25 Mg Tablet 1 Tab PO BID Alprazolam 0.5 Mg Tablet 0.5 Mg PO PRN Q6HRS PRN Atorvastatin Calcium 10 Mg Tablet 10 Mg PO HS Latanoprost 2.5 Ml Drops 1 Drop EACHEYE QHS Vitals/I & O Vital Sign - Last 24 Hours 06/29/19 06/29/19 06/29/19 06/29/19 13:47 14:02 14:32 15:02 Pulse 102 105 114 93 B/P (MAP) 176/77 (110) 175/79 (111) 167/79 (108) 145/65 (91) 06/29/19 06/29/19 06/29/19 06/29/19 16:02 19:50 20:00 21:03 Temp 97.7 97.7 Pulse 101 62 70 Resp 20 B/P (MAP) 161/70 (100) 177/78 (111) 177/78 Pulse Ox 96 O2 Delivery Room Air Room Air 06/29/19 06/30/19 06/30/19 06/30/19 23:10 03:00 07:00 08:00 Temp 97.7 97.6 97.7 97.6 Pulse 53 46 51 Resp 22 22 B/P (MAP) 151/72 (98) 171/74 (106) Pulse Ox 99 98 O2 Delivery Room Air Room Air Room Air 06/30/19 06/30/19 06/30/19 09:06 09:07 11:00 Temp 97.7 97.7 Pulse 53 51 49 Resp 22 B/P (MAP) 171/74 171/74 171/74 (106) Pulse Ox 96 O2 Delivery Room Air Intake and Output 06/29/19 06/29/19 06/30/19 15:00 23:00 07:00 Intake Total 50 ml Output Total 800 ml 400 ml Balance -800 ml -400 ml 50 ml LUZ MARIA SMYTH MD Jun 30, 2019 13:44
--- NOTE | 2019-06-30 13:58 | DS ---
DATE OF DISCHARGE: 06/30/2019 HOSPITAL SUMMARY: An 83-year-old white female admitted with atrial fibrillation with rapid ventricular response, which has been found with an outpatient monitor and when she was getting an echo, the rate was higher. Chemistry profile and CBC were unremarkable. TSH was normal. Hemoglobin A1c was high at 7.3, which is unknown ____ for her. Cholesterol very good at 168, HDL 65, LDL 78. Chest x-ray was clear. Echocardiogram showed mildly reduced ejection fraction of 40%-45%, mainly because of high ventricular rate. Transesophageal echo showed a reduced ejection fraction of 20% with global hypokinesis of the ventricle and no thrombi were seen. She underwent IV diltiazem, but because of hypotension, drug was discontinued and amiodarone was substituted. Atrial fibrillation persisted and she underwent successful cardioversion, remains in sinus rhythm at this time and is comfortable to be followed as an outpatient. FINAL DIAGNOSES: 1. Atrial fibrillation with rapid ventricular response. 2. Dilated cardiomyopathy, ejection fraction 20%, may be rate dependent. OPERATIONS AND PROCEDURES: Transesophageal echo and cardioversion. COMPLICATIONS: None. CONSULTATIONS: Saud Jeffery MD DISPOSITION: She will take amiodarone as ordered per Dr. Jeffery and lisinopril as well for ventricular benefit. She will continue on metoprolol 50 mg twice a day and Xarelto 20 mg daily and atorvastatin as she is on at home. Her diabetes is diet-controlled and will not be treated with medication at this time, is followed. Office followup with Dr. Sen in 1-[address] Edwards in 3 weeks and she will need a repeat echo in a month or two to see if her ejection fraction has improved as her rate remains slow or as one would expect that it would. May need a coronary artery evaluation as an outpatient as well. PIEDAD EDWARDS MD DR: GOVIND/tim JOB#: [id number] / [id number]
== END 2019-06-30 12:30 | disposition home or self-care (01) | DRG 309 ==
LOC: ER 12:51 → 2 NORTH 14:04
PROVIDERS: ADMIT Family Medicine; ATTEND Family Medicine
PROC: B24BZZ4 Ultrasonography of Heart with Aorta, Transesophageal (ICD-10-PCS; principal; 2019-06-28)
PROC: 5A2204Z Restoration of Cardiac Rhythm, Single (ICD-10-PCS; 2019-06-28)
DX: I48.19 Other persistent atrial fibrillation (principal); N17.9 Acute kidney failure, unspecified; I42.0 Dilated cardiomyopathy; E78.00 Pure hypercholesterolemia, unspecified; E78.5 Hyperlipidemia, unspecified; E83.42 Hypomagnesemia; I10 Essential (primary) hypertension; I25.10 Atherosclerotic heart disease of native coronary artery without angina pectoris; Z79.01 Long term (current) use of anticoagulants; Z90.49 Acquired absence of other specified parts of digestive tract; Z90.710 Acquired absence of both cervix and uterus; Z95.5 Presence of coronary angioplasty implant and graft; F41.9 Anxiety disorder, unspecified; K21.9 Gastro-esophageal reflux disease without esophagitis; M19.90 Unspecified osteoarthritis, unspecified site
CPT/HCPCS: 36415; 71046; 80053; 80061; 82553; 83036; 83735; 84443; 84484; 85025; 85610; 85730; 92960; 93005; 93306; 93312; 93320; 93325; 96365; 96375; J0282; J2704; J3475; J3490; J7030; 99285-25; G0378

== ENCOUNTER → 2020-04-15 | Outpatient (CLI) | payer MEDICARE ==
[~2020-04-15] MED LIST changes: +ALPR0.5T6 PO; +ALPRAZolam 0.5 MG TABLET PO ONE; +AMIO200T4 PO; +ATOR10TA60 PO; +METO25TA4 PO; +REGADENOSON 0.4 MG/5 ML DISP.SYRIN. IV ONE; +RIVA20TA2 PO; +hydrALAZINE 20 MG/ML VIAL. IVP ONE; +hydrALAZINE 20 MG/ML VIAL. ONE
[2020-04-15 12:10] VITALS: BP 244/108
--- NOTE | 2020-04-15 12:30 | NUR ---
Called Dr. Jeffery about patient's initial blood stiwstdm=974/108. Patient stated she always has problems with it when she goes for any procedure or appointment. Dr. Jeffery gave telephone orders for patient to receive 10mg IV Hydralazine and 0.5 mg Alprazolam po. Patient's blood pressure improved with medications to 206/87 and stress test conducted. Blood pressure currently 188/78. Dr. Jeffery came over to see the patient in Nuclear Medicine, will continue to monitor.
--- NOTE | 2020-04-15 15:56 | RAD ---
MR#: [id number] Date of Study: 04/15/2020 Ordering Physician: MJ WORKMAN, Referring Physician: WALDO FERGUSON Tech: RT Deya (R) (N) APPROVED REPORT Test Type: Pharmacological Stress Nurse/Tech: Laura Nicholson RN Test Indications: CAD Cardiac History: Hypertension(with procedures),PTCA 2008 Medications: See Electronic Medical Record Medical History: See Electronic Medical Record Resting ECG: A-fib Resting Heart Rate: 78 bpm Resting Blood Pressure: 206/87mmHg Pretest Chest Pain: No chest pain Nurse/Tech Notes S1,S2 and lungs clear to auscultation. Patient stated she is very anxious and only slept for 2 hours last night. Consent: The procedure was explained to the patient in lay terms. Informed consent was witnessed. Silver eout was entered into [employer] [facility]. History and Stress Test performed by MJ Sethi, WILLA (R) (N) Pharm. Details Pharmacologic stress testing was performed using 0.4mg per 5ml of regadenoson given intravenously ove r 7-10 seconds. Stress Symptoms Nausea POST EXERCISE Reason for Termination: Infusion complete Target HR: No Max HR: 100 bpm 86% of Maximum Predicted HR: 116 bpm Max Blood Pressure: 206/87mmHg Blood Pressure response to exercise: Abnormal blood pressure response during stress. Heart Rate response to exercise: WNL Chest Pain: No. Arrhythmia: Yes. PVCs ST Change: No. INTERPRETATION Stress EKG Conclusion: Baseline EKG showed sinus rhythm. No ischemic changes at peak stress. Few PV C's without any significant arrhythmias. Imaging Protocol IMAGE PROTOCOL: Rest Tc-99m/stress Tc-99m 1 day Rest: Stress: Viability: Radiopharm.Tc99m WvnqhcurnGf20t Sestamibi Yeix47yNy 31.3mCi Duration 13min. 13min. Img Date 04/15/2020 04/15/2020 Inj-Img Nrgd27atw. 60min. Rest Admin Site:IV - Right AntecubitalAdministrator:MJ Sethi, WILLA (R)(N) Stress Admin Site: IV - Right AntecubitalAdministrator: MJ Sethi, ARRT (R)(N) STRESS DATA End Diast. Vol.87.0mlLVEDV index BSA51.0ml End Syst. Vol.34.0mlLVESV index BSA19.0ml Myocardial Lwev075.0gEject. Fzieicwq55.0% Stress Scores Regional WT2.00Summed WT4.00 Regional WM0.00Summed WM6.00 Study quality was good. Left Ventricular size was Normal at Rest and Stress. Lung uptake was . Left Ventricular ejection fraction is 59%. The rest and stress images show normal perfusion, normal contraction and thickening. LV Perf. Quant 17 Seg. SSS1.00 17 Seg. SRS0.00 17 Seg. SDS1.00 Stress Defect Extent (% LAD)0.00Rest Defect Extent (% LAD)0.00Rev. Defect Extent (% LAD)0.00 Stress Defect Extent (% LCX) 0.00Rest Defect Extent (% LCX)0.00Rev. Defect Extent (% LCX)0.00 Stress Defect Extent (% RCA)0.00Rest Defect Extent (% RCA)0.00Rev. Defect Extent (% RCA)0.00 Stress Defect Extent (% NICHOLAS)0.00Rest Defect Extent (% NICHOLAS)0.00Rev. Defect Extent (% NICHOLAS)0.00 Conclusion 1. Regadenoson cardioisotope stress test did not show any evidence of ischemia or infarct. 2. Normal left ventricular systolic function with ejection fraction calculated at 59%. 3. Low risk for cardiac events. Signed by : Sky Israel, Electronically Approved : 04/15/2020 15:55:38
--- NOTE | 2020-04-15 16:06 | CARD ---
MR#: [id number] Date of Study: 04/15/2020 Ordering Physician: MJ WORKMAN, Referring Physician: MJ WORKMAN, Tech: Danii Martinez [facility] AP[facility] RE[facility] EXAM: Two-dimensional and M-mode echocardiogram with Doppler and color Doppler. Other Information Quality : Good Rhythm : Atrial Fibrillation INDICATION Atrial Fibrillation 2D DIMENSIONS RVDd2.0 (2.9-3.5cm)Left Atrium(2D)4.5 (1.6-4.0cm) IVSd1.5 (0.7-1.1cm)Aortic Root(2D)2.7 (2.0-3.7cm) LVDd4.7 (3.9-5.9cm)LVOT Diameter1.9 (1.8-2.4cm) PWd0.8 (0.7-1.1cm)LVDs3.0 (2.5-4.0cm) FS (%) 37.3 %SV69.1 ml LVEF(%)60.0 (>50%) Aortic Valve AoV Peak Wali.132.0cm/sAoV VTI27.6cm AO Peak GR.7.0mmHgLVOT Peak Wali.86.5cm/s LVOT VTI 19.67cmAO Mean GR.4mmHg ESSENCE (VMAX)1.32ss1SDY (VTI)2.09cm2 AI P 1/2 Ugch104le Mitral Valve MV E Detomdco83.5cm/sMV DECEL NLRK929he MV A Azniyxyx75.7cm/sMV OTB72fu E/A Ratio1.1MVA (PHT)7.23cm2 TDI E/Lateral E'12.0E/Medial E'23.5 Tricuspid Valve TR P. Xpguydci249je/sRAP SSGCCMKC7bfYs TR Peak Gr.91ovGyLNTF65whXx Pulmonary Vein S1 Bdiuvsxg76.1cm/sD2 Xggrzieu11.6cm/s LEFT VENTRICLE The left ventricle is normal size. There is normal left ventricular wall thickness. The left ventricu lar systolic function is normal. The Ejection Fraction is 55-60%. There is normal LV segmental wall m otion. Transmitral Doppler flow pattern is Grade II-pseudonormal filling dynamics. RIGHT VENTRICLE The right ventricle is normal size. The right ventricular systolic function is normal. ATRIA The left atrium is mildly dilated. The right atrium size is normal. The interatrial septum is intact with no evidence for an atrial septal defect or patent foramen ovale as noted on 2-D or Doppler imagi ng. AORTIC VALVE The aortic valve is calcified but opens well. Doppler and Color Flow revealed mild to moderate aortic regurgitation. There is no significant aortic valvular stenosis. MITRAL VALVE The mitral valve is calcified but opens well. There is no evidence of mitral valve prolapse. There is no mitral valve stenosis. Doppler and Color-flow revealed mild mitral regurgitation. TRICUSPID VALVE The tricuspid valve is normal in structure and function. Doppler and Color Flow revealed trace tricus pid regurgitation. There is moderate pulmonary hypertension. The PA pressure was estimated at 45 mmHg . There is no tricuspid valve stenosis. PULMONIC VALVE The pulmonary valve is normal in structure and function. Doppler and Color Flow revealed trace pulmon ic valvular regurgitation. There is no pulmonic valvular stenosis. GREAT VESSELS The aortic root is normal in size. The ascending aorta is mildly dilated at 3.4 cm. The IVC is normal in size and collapses >50% with inspiration. PERICARDIAL EFFUSION There is no evidence of significant pericardial effusion. Critical Notification Critical Value: No <Conclusion> The left ventricular systolic function is normal. The Ejection Fraction is 55-60%. There is normal LV segmental wall motion. Mild to moderate aortic regurgitation. Mild mitral regurgitation. Trace tricuspid regurgitation. The PA pressure was estimated at 45 mmHg. There is no evidence of significant pericardial effusion. Signed by : Sky Israel, Electronically Approved : 04/15/2020 16:06:01
== END ==
LOC: NM 09:02
PROVIDERS: ATTEND Internal Medicine Cardiovascular Disease
DX: I08.0 Rheumatic disorders of both mitral and aortic valves (principal); I27.20 Pulmonary hypertension, unspecified; I48.91 Unspecified atrial fibrillation; I25.10 Atherosclerotic heart disease of native coronary artery without angina pectoris
CPT/HCPCS: 78452; 93017; 93306; A9500; J0360; J2785

== ENCOUNTER → 2021-06-25 | Outpatient (CLI) | payer MEDICARE ==
[2021-02-18 14:26] VITALS: BP 190/56
[~2021-06-25] MED LIST changes: -ALPRAZolam 0.5 MG TABLET PO ONE; -AMIO200T4 PO; +AMIO200T53 PO; -CIPR500T PO; +CIPR500T2 PO; +METF10007 PO; +METF500T16 PO; -REGADENOSON 0.4 MG/5 ML DISP.SYRIN. IV ONE; -hydrALAZINE 20 MG/ML VIAL. IVP ONE; -hydrALAZINE 20 MG/ML VIAL. ONE
--- NOTE | 2021-06-25 12:28 | CARD ---
MR#: [id number] Date of Study: 06/25/2021 Ordering Physician: MJ WORKMAN, Referring Physician: MJ WORKMAN, Tech: Giovanni Castillo [facility] APPROVED REPORT EXAM: Two-dimensional and M-mode echocardiogram with Doppler and color Doppler. Other Information Quality : AverageHR: 67bpm Rhythm : NSR INDICATION Atrial Fibrillation 2D DIMENSIONS Left Atrium(2D)4.7 (1.6-4.0cm)IVSd1.2 (0.7-1.1cm) Aortic Root(2D)2.8 (2.0-3.7cm)LVDd4.6 (3.9-5.9cm) LVOT Diameter2.0 (1.8-2.4cm)PWd1.2 (0.7-1.1cm) LVDs3.2 (2.5-4.0cm)FS (%) 30.7 % SV55.4 mlLVEF(%)58.4 (>50%) Aortic Valve AoV Peak Wali.107.7cm/sAoV VTI25.6cm AO Peak GR.4.6mmHgLVOT Peak Wali.68.4cm/s AO Mean GR.3mmHgAVA (VMAX)1.94cm2 AI P 1/2 Pvhv247oj Mitral Valve MV E Hgbwrtah56.2cm/sMV E Peak Gr.2mmHg MV DECEL NCTV04ioXS A Kdglwmyf04.1cm/s MV E Mean Gr.1mmHgE/A Ratio1.9 MV A Mkzuxpop07od Pulmonary Valve PV Peak Vxqojazc74.7cm/s Tricuspid Valve TR P. Ymmiqjpj519at/sTR Peak Gr.51mmHg Pulmonary Vein S1 Ghuyuggq62.9cm/sD2 Ghyvywwh91.4cm/s PVa niagboir779gjed LEFT VENTRICLE The left ventricle is normal size. There is mild concentric left ventricular hypertrophy. The left ve ntricular systolic function is normal. The ejection fraction is 55-60%. There is normal LV segmental wall motion. Transmitral Doppler flow pattern is Grade III-reversible restrictive diastolic dysfuncti on. No left ventricle thrombus noted on this study. There is no ventricular septal defect visualized. There is no left ventricular aneurysm. There is no mass noted in the left ventricle. RIGHT VENTRICLE The right ventricle is normal size. There is normal right ventricular wall thickness. The right ventr icular systolic function is normal. ATRIA The left atrium is moderately dilated. The right atrium size is normal. The interatrial septum is int act with no evidence for an atrial septal defect or patent foramen ovale as noted on 2-D or Doppler i maging. AORTIC VALVE The aortic valve is thickened but opens well. The aortic valve is trileaflet. Doppler and Color Flow revealed mild aortic regurgitation. There is no significant aortic valvular stenosis. There is no aor tic valvular vegetation. MITRAL VALVE The mitral valve is thickened but opens well. There is no evidence of mitral valve prolapse. There is no mitral valve stenosis. Doppler and Color-flow revealed mild to moderate mitral regurgitation. TRICUSPID VALVE Doppler and Color Flow revealed mild to moderate tricuspid regurgitation. There is no tricuspid valve prolapse or vegetation. There is no tricuspid valve stenosis. PULMONIC VALVE The pulmonary valve is normal in structure and function. There is mild pulmonic regurgitation There i s no pulmonic valvular stenosis. GREAT VESSELS The aortic root is normal in size. The ascending aorta is normal in size. The IVC is normal in size a nd collapses >50% with inspiration. PERICARDIAL EFFUSION There is no pleural effusion. There is no evidence of significant pericardial effusion. Critical Notification Critical Value: No <Conclusion> The left ventricular systolic function is normal. The ejection fraction is 55-60%. There is normal LV segmental wall motion. Transmitral Doppler flow pattern is Grade III-reversible restrictive diastolic dysfunction. Mild aortic regurgitation. Mild to moderate mitral regurgitation. Mild to moderate tricuspid regurgitation. There is no evidence of significant pericardial effusion. Signed by : Sky Israel, Electronically Approved : 06/25/2021 12:27:55
== END ==
LOC: ECHO 10:32
PROVIDERS: ATTEND Internal Medicine Cardiovascular Disease
DX: I08.3 Combined rheumatic disorders of mitral, aortic and tricuspid valves (principal); I48.91 Unspecified atrial fibrillation
CPT/HCPCS: 93306